=== PATIENT | female | born 1980 | race Caucasian/White ===

== ENCOUNTER 2017-02-11 11:11 | Inpatient (IN) | payer MEDICAID ==
[~2017-02-11] VITALS: Ht 152.4 cm; Wt 91.5 kg
[~2017-02-11 11:11] MED LIST: ACET500C5 PO; CALC400T19 PO; FOLI-49 PO; PREN1TAB13 PO; SYN75 PO
[2017-02-11 11:25] VITALS: BP 126/56; PULSE 81
[2017-02-11 12:24] LABS: ADD UMIC YES; URINE BILIRUBIN (Dip) NEGATIVE (NEGATIVE); URINE BLOOD (Dip) 3+ (NEGATIVE); URINE COLOR LT. YELLOW (YELLOW); URINE GLUCOSE (Dip) NEGATIVE (NEGATIVE); URINE KETONES (Dip) NEGATIVE (NEGATIVE); URINE LEUKOCYTE ESTERASE (Dip) 3+ (NEGATIVE); URINE NITRITE (Dip) NEGATIVE (NEGATIVE); URINE TOTAL PROTEIN (Dip) NEGATIVE (NEGATIVE); URINE UROBILINOGEN (Dip) 0.2 E.U./dL (0.1-1.0)
[2017-02-11 13:00] LABS: BACTERIA,URINE MANY; SQUAMOUS EPITHELIAL CELL,UR MANY; URINE RBCS 0-2 /HPF (0)
--- NOTE | 2017-02-11 13:12 | RADRPT ---
PROCEDURE: US OB. CLINICAL INDICATION: labor at 32 weeks gestational age. TECHNIQUE: Multiple sonographic images of the uterus were obtained. Transvaginal sonogra phy of the cervix was also performed. The images were reviewed on a PACS workstation. COMPARISON: No prior studies are available for comparison. FINDINGS: There is a single live intrauterine gestation. heart rate is 134 beats per minute. Measurements were made in order to determine age. The results are as follows: BPD = 8.50 cm. HC = 31.67 cm. AC = 32.77 cm. FL = 6.07 cm. Estimated weight is 2570 +/- 386 grams. LMP growth percentile is 96 %. Menstrual age by ultrasound dates is 34 weeks 4 days. The estimated date of delivery is 03/21/2017. Transvaginal cervical length is 2.4 cm. Position is cephalic and placenta is right lateral grade 1. There is no evidence for an abruption or placenta previa. IMPRESSION: 1. Single live intrauterine gestation of 34 weeks 4 days menstrual age by ultrasound dates. 2. The estimated date of delivery is 03/21/2017. 3. Cervical length is 2.4 cm. RPTAT: QQ .Sanju Ng MD, MD Date Time Electronically viewed and signed by .Sanju Ng MD, on 02/11/2017 13:12 .R/
[2017-02-11] MEDS ORDERED: LACTATED RINGER'S 1,000 ML IV SCH (14:34)
--- NOTE | 2017-02-11 14:55 | HP ---
Date/Time of Note Date/Time of Note DATE: 02/11/17 TIME: 14:53 OB - History Hx of Present Free Text/Dictation Pt is a 36yo at 32+5 who presents with lower abdominal cramping since early this AM and vaginal bleeding which she noticed on her underwear at 1000. Pt reports normal FM and denies LOF. Hx of 32wk PTD 2.5yrs ago and full-term 5yrs ago. Pt is receiving weekly hydroxyprogesterone. PROCEDURE: US OB. CLINICAL INDICATION: labor at 32 weeks gestational age. TECHNIQUE: Multiple sonographic images of the uterus were obtained. Transvaginal sonography of the cervix was also performed. The images were reviewed on a PACS workstation. COMPARISON: No prior studies are available for comparison. FINDINGS: There is a single live intrauterine gestation. heart rate is 134 beats per minute. Measurements were made in order to determine age. The results are as follows: BPD = 8.50 cm. HC = 31.67 cm. AC = 32.77 cm. FL = 6.07 cm. Estimated weight is 2570 +/- 386 grams. LMP growth percentile is 96 %. Menstrual age by ultrasound dates is 34 weeks 4 days. The estimated date of delivery is 03/21/2017. Transvaginal cervical length is 2.4 cm. Position is cephalic and placenta is right lateral grade 1. There is no evidence for an abruption or placenta previa. IMPRESSION: 1. Single live intrauterine gestation of 34 weeks 4 days menstrual age by ultrasound dates. 2. The estimated date of delivery is 03/21/2017. 3. Cervical length is 2.4 cm. Estimated Due Date: Apr 03, 2017 : 3 Para: 2 Care: Good Care Obstetrical Complications: Gestational Diabetes (A1, fasting this AM 92, 1hr postprandial s/p breakfast 122) Medical Complications: None OB Admission Exam Vital Signs Vital Signs Vital Signs Date Time Temp Pulse Resp B/P Pulse Ox O2 Delivery O2 Flow Rate FiO2 02/11/17 11:25 98.1 81 126/56 Physical Exam HEENT: WNL Heart: Rhythm Normal Lungs: Clear Abdomen: WNL (gravid, nontender) Extremities: Normal Cervical Dilatation: 1cm Effacement: 50% Station: -3 Membranes: Intact Heart Rate: 130's Accelerations: Accelerations Present Decelerations: No Decelerations Varibility: Moderate Contractions on Admission: 6-10 Minutes Apart (irregular, at times q4, other times q9 min) Last 72 hourBlood Glucose Bedside Glucose - 72 Hours Test 02/11/17 11:55 Bedside Glucose 94mg/dL (70-220) OB Assessment/Plan Other Assessment: contractions CL <2.5cm History of PTB GDMA1 Other plan: Will admit to antepartum service for continued monitoring and betamethasone administration in the setting of symptomatic contractions, cervical length <2.4cm and hx of . Unable to send FFN 2/2 vaginal bleeding. -Admission labs -Straight catheter for U/A and send urine for culture -Collect GBS on admission -IVF hydration -Carb consistent diet -Fasting and postprandial FSBG -CEFM and toco -Consider MFM consult. Will defer to primary OB -If pt becomes more active in terms of labor, will need to be transferred to L&D Plan d/w pt. Questions answered to her satisfaction. RAMOS CASAREZ MD February 11, 2017 14:55
[2017-02-11] MEDS: LACTATED RINGER'S 1,000 ML IV SCH ×2 (15:38→23:15)
[2017-02-11 15:45] LABS: ADD UMIC YES; URINE BILIRUBIN (Dip) NEGATIVE (NEGATIVE); URINE BLOOD (Dip) TRACE (NEGATIVE); URINE COLOR LT. YELLOW (YELLOW); URINE GLUCOSE (Dip) NEGATIVE (NEGATIVE); URINE KETONES (Dip) 40 (NEGATIVE); URINE LEUKOCYTE ESTERASE (Dip) NEGATIVE (NEGATIVE); URINE NITRITE (Dip) NEGATIVE (NEGATIVE); URINE TOTAL PROTEIN (Dip) NEGATIVE (NEGATIVE); URINE UROBILINOGEN (Dip) 0.2 E.U./dL (0.1-1.0)
[2017-02-11 15:45] LABS: ADD SCAN DIFF NO
[2017-02-11 15:47] LABS: BASOPHILS % 0.1 % (0.0-2.0); EOSINOPHILS # 0.5 10^3/ul (0.0-0.5); EOSINOPHILS % 6.7 % (0.0-7.0); HEMATOCRIT 37.3 % (37.0-47.0); HEMOGLOBIN 12.2 g/dl (12.0-16.0); LYMPHOCYTES # 1.7 10^3/ul (0.8-2.9); LYMPHOCYTES % 23.3 % (15.0-51.0); MEAN CORPUSCULAR HEMOGLOBIN 28.9 pg (29.0-33.0); MEAN CORPUSCULAR HGB CONC 32.7 g/dl (32.0-37.0); MEAN CORPUSCULAR VOLUME 88.4 fl (82.0-101.0); MEAN PLATELET VOLUME 9.8 fl (7.4-10.4); MONOCYTE # 0.4 10^3/ul (0.3-0.9); MONOCYTES % 5.1 % (0.0-11.0); NEUTROPHIL # 4.8 10^3/ul (1.6-7.5); NEUTROPHILS % 64.3 % (39.0-77.0); PLATELET COUNT 265 10^3/UL (140-415); RED BLOOD COUNT 4.22 10^6/ul (4.20-5.40); RED CELL DISTRIBUTION WIDTH 14.2 % (11.5-14.5); WHITE BLOOD COUNT 7.4 10^3/ul (4.8-10.8)
[2017-02-11] MEDS: BETAMET NA PHOS/AC(6 MG/ML) 5ML INJ IM SCH (16:15)
[2017-02-11 16:18] LABS: MUCUS,URINE FEW; SQUAMOUS EPITHELIAL CELL,UR FEW; URINE RBCS 0-2 /HPF (0)
[2017-02-11] MEDS: ACCU-CHEK XX SCH (19:33)
[2017-02-12] MEDS: NIFEdipine 10 MG CAP PO SCH ×3 (05:08→17:54)
[2017-02-12] MEDS ORDERED: TERBUTALINE 1 ML ONE (05:50)
[2017-02-12] MEDS ORDERED: TERBUTALINE 1 MG/ML INJ SC ONE (06:00)
[2017-02-12] MEDS: LACTATED RINGER'S 1,000 ML IV SCH ×4 (06:01→23:57)
[2017-02-12] MEDS: ACCU-CHEK XX SCH ×4 (08:13→20:33)
[2017-02-12] MEDS: BETAMET NA PHOS/AC(6 MG/ML) 5ML INJ IM SCH (16:09)
[2017-02-12] MEDS ORDERED: GLUCAGON 1 MG INJ IM PRN (17:00)
[2017-02-12] MEDS ORDERED: DEXTROSE 50% 50 ML SYRINGE IV PRN ×2 (17:00)
[2017-02-12] MEDS ORDERED: GLUCOSE GEL 15 GRAM TUBE PO PRN ×2 (17:00)
[2017-02-12] MEDS ORDERED: GLUCOSE GEL 15 GRAM TUBE BUCCAL PRN (17:00)
--- NOTE | 2017-02-12 17:32 | CONS ---
DATE OF ADMISSION: 02/11/2017 DATE OF CONSULTATION: REFERRING PHYSICIAN: Edelmira Mccain MD HISTORY OF PRESENT ILLNESS: I was asked to talk with this mother who is a 36- year-old 3, para 2 at 32.5 weeks gestational age in labor. Mother received 1 dose of betamethasone on 02/11 at 1615. was complicated by gestational diabetes which is diet controlled. Estimated weight is 2570 grams. Mother is on Procardia. I talked with mother via the video interpretation as mother is [place]ese speaking only. Discussed with mother that the infant being 32.5 weeks is premature with large for gestational age with an estimated weight of 2570 grams. I discussed about the risk of respiratory distress syndrome requiring treatment with oxygen therapy, bubble CPAP and/or Curosurf administration if respiratory distress is moderate or requiring oxygen greater than 40%. I also discussed about the risk of apnea of prematurity and treatment with stimulation, as well as nasal cannula CPAP and caffeine if needed. Discussed about risk of sepsis and possibility of treatment with antibiotics if suspicion is high. I also discussed about hyperbilirubinemia and electrolyte imbalance and TPN administration. Discussed about starting feedings with tube feedings and to be increased gradually and to be monitored for gastroesophageal reflux and abdominal distention. Mother would like to breast feed the . Discussed about the benefits of breast milk and also encouraged her to pump breast milk as soon as the infant is delivered. I also discussed about risk for neurodevelopmental delay, as the infant is premature. Discussed about length of stay of 2 to 3 weeks or longer depending on infant's response to treatment, as well as the problems during hospitalization. Discussed about infant feeding adequately with weight gain, able to maintain temperature and not having any other problems including apnea before discharge. Discussed about good prognosis and answered all mother's questions. As mother had no further questions, the discussion was concluded. Mother's records were not in the chart, but however, her blood type is O positive, antibody negative, hepatitis B surface antigen is negative and HIV is negative. An ultrasound showed 34.4 weeks gestational age with an estimated weight of 2570 grams. Dictated By: MELBA HAQ/NTS Conf#: [id number] DID#: [id number] CC: EDELMIRA MCCAIN MD;*EndCC* MTDD
--- NOTE | 2017-02-12 17:39 | QN ---
Documentation Comment pt doinjg well no complaints nst rective occasional ucx exam wnl a/p iup 32 weeks ptl-on procardia and bms a1gdm stable continue care possible dc in am TANA WHITE MD February 12, 2017 17:39
[2017-02-12] MEDS ORDERED: INSULIN ASPART [NOVOLOG] 3 ML PEN SC SCH (20:05)
[2017-02-13] MEDS: NIFEdipine 10 MG CAP PO SCH (00:04)
[2017-02-13] MEDS ORDERED: LACTATED RINGER'S 1,000 ML IV SCH (04:27)
[2017-02-13] MEDS ORDERED: METHYLERGONOVINE 0.2 MG INJ IM PRN ×2 (04:30→07:30)
[2017-02-13] MEDS ORDERED: OXYTOCIN 30 UNITS/LR 500 ML IV PRN ×2 (04:30→07:30)
[2017-02-13] MEDS ORDERED: IBUPROFEN 600 MG TAB PO PRN (04:30)
[2017-02-13] MEDS ORDERED: LACTATED RINGER'S 1,000 ML IV PRN (04:30)
[2017-02-13] MEDS ORDERED: MISOPROSTOL 200 MCG TAB PR PRN ×2 (04:30→07:30)
[2017-02-13] MEDS ORDERED: LIDOCAINE 1% (MPF) 30 ML INJ INJ PRN (04:30)
[2017-02-13] MEDS ORDERED: BUTORPHANOL 2 MG INJ IV PRN ×2 (04:30)
[2017-02-13] MEDS ORDERED: AMPICILLIN 2 GM/NS (PMX) 100 ML IV ONE (04:30)
[2017-02-13] MEDS ORDERED: OXYTOCIN 30 UNITS/LR 500 ML IV SCH ×2 (04:30)
[2017-02-13] MEDS ORDERED: ACETAMINOPHEN/CODEINE #3 TAB PO PRN (04:30)
[2017-02-13] MEDS ORDERED: CARBOPROST 250 MCG INJ IM PRN ×2 (04:30→07:30)
[2017-02-13] MEDS ORDERED: LEVOTHYROXINE 75 MCG TAB PO SCH (06:00)
[2017-02-13] MEDS: LACTATED RINGER'S 1,000 ML IV* SCH ×2 (07:09→15:09)
--- NOTE | 2017-02-13 07:18 | LDN ---
Date/Time of Note Date/Time of Note DATE: 02/13/17 TIME: 07:14 Delivery Summary Patient broke through tocolysis and progressed rapidly to delivery of a viable baby boy weighing 2585 grams or 5# 11oz, 18" long, and with Apgars of 9/9. Weeks of Gestation 33 Placenta Delivered: Spontaneously Meconium: none Episiotomy: No Perineal laceration: 0 Laceration repair: A first degree labial laceration was repaired with 2-0chromic. Anesthesia type: None Estimated blood loss: 200 Sponge & Needle done & correct: Yes All needle counts correct: Yes Any foreign bodies felt in the: No (vagina) Problems: Infant Delivery Information Sex Infant Sex: male Apgars 1 Minute: 9 5 Minute: 9 Suctioning Nose & mouth suctioned at phu: Yes Delee suction performed: No Umbilical Cord Umbilical cord with: 3 Vessels Cord presentations: no nuchal cord Cord Blood was obtained: Yes Mother & Baby Disposition Disposition Baby was very vigorous but transferred to the NICU due to the gestational age of 33 weeks. Mom & Baby to Maternity; Good: No Mom transferred to: Other (maternity) Baby to NICU: Yes OMER SANTO MD February 13, 2017 07:18
[2017-02-13 07:20] LABS: ADD SCAN DIFF NO
[2017-02-13] MEDS: OXYTOCIN 30 UNITS/LR 500 ML IV SCH ×2 (07:29→11:09)
[2017-02-13] MEDS ORDERED: LANOLIN 7 GM TUBE TOP PRN (07:30)
[2017-02-13] MEDS ORDERED: OXYCODONE/ASPIRIN (4.88/325) TAB PO PRN (07:30)
[2017-02-13] MEDS ORDERED: OXYTOCIN 30 UNITS/LR 500 ML IVPB ONE (07:30)
[2017-02-13] MEDS ORDERED: OXYTOCIN 30 UNITS/LR 500 ML IV ONE (07:30)
[2017-02-13 07:32] LABS: BASOPHILS % 0.1 % (0.0-2.0); EOSINOPHILS % 0.1 % (0.0-7.0); HEMATOCRIT 35.6 % (37.0-47.0); HEMOGLOBIN 11.8 g/dl (12.0-16.0); LYMPHOCYTES # 2.2 10^3/ul (0.8-2.9); LYMPHOCYTES % 18.7 % (15.0-51.0); MEAN CORPUSCULAR HEMOGLOBIN 29.5 pg (29.0-33.0); MEAN CORPUSCULAR HGB CONC 33.1 g/dl (32.0-37.0); MEAN PLATELET VOLUME 10.1 fl (7.4-10.4); MONOCYTE # 0.5 10^3/ul (0.3-0.9); MONOCYTES % 4.7 % (0.0-11.0); NEUTROPHIL # 8.7 10^3/ul (1.6-7.5); NEUTROPHILS % 75.4 % (39.0-77.0); PLATELET COUNT 272 10^3/UL (140-415); RED CELL DISTRIBUTION WIDTH 14.4 % (11.5-14.5); WHITE BLOOD COUNT 11.5 10^3/ul (4.8-10.8)
[2017-02-13 07:40] LABS: INR 0.93; PROTIME 12.5 Sec (12.2-14.2)
[2017-02-13 07:41] LABS: PARTIAL THROMBOPLASTIN TIME 24.5 Sec (25.0-35.0)
[2017-02-13 07:53] LABS: ALANINE AMINOTRANSFERASE 71 IU/L (13-69); ALBUMIN/GLOBULIN RATIO 0.96; ALKALINE PHOSPHATASE 271 IU/L (42-121); ANION GAP 10 (8-16); ASPARTATE AMINO TRANSFERASE 28 IU/L (15-46); BILIRUBIN,INDIRECT 0.3 mg/dl (0-1.1); BILIRUBIN,TOTAL 0.3 mg/dl (0.2-1.3); BLOOD UREA NITROGEN 8 mg/dl (7-20); CALCIUM 8.6 mg/dl (8.4-10.2); CARBON DIOXIDE 20 mmol/L (21-31); CHLORIDE 110 mmol/L (97-110); CREATININE 0.44 mg/dl (0.44-1.00); GLUCOSE 118 mg/dl (70-220); POTASSIUM 3.7 mmol/L (3.5-5.1); SODIUM 136 mmol/L (135-144); TOTAL PROTEIN 6.1 g/dl (6.1-8.1)
[2017-02-13] MEDS ORDERED: AMPICILLIN 1 GM/NS (PMX) 50 ML IV SCH (08:30)
[2017-02-13 09:26] LABS: ADD UMIC YES; URINE BILIRUBIN (Dip) NEGATIVE (NEGATIVE); URINE BLOOD (Dip) 2+ (NEGATIVE); URINE COLOR LT. YELLOW (YELLOW); URINE GLUCOSE (Dip) NEGATIVE (NEGATIVE); URINE KETONES (Dip) TRACE (NEGATIVE); URINE LEUKOCYTE ESTERASE (Dip) 2+ (NEGATIVE); URINE NITRITE (Dip) NEGATIVE (NEGATIVE); URINE TOTAL PROTEIN (Dip) NEGATIVE (NEGATIVE); URINE UROBILINOGEN (Dip) 0.2 E.U./dL (0.1-1.0)
[2017-02-13 09:40] LABS: BACTERIA,URINE MODERATE
[2017-02-13 09:50] VITALS: BP 100/58; PULSE 64; RESP 16
[2017-02-13 09:53] LABS: BARBITURATES Negative (NEGATIVE); BENZODIAZEPINES Negative (NEGATIVE); CANNABINOIDS Negative (NEGATIVE); COCAINE Negative (NEGATIVE); OPIATES Negative (NEGATIVE)
[2017-02-13] MEDS: IBUPROFEN 600 MG TAB PO SCH ×3 (12:07→23:41)
[2017-02-13] MEDS: LEVOTHYROXINE 75 MCG TAB PO SCH (12:38)
[2017-02-13 17:00] VITALS: BP 102/60; PULSE 62; RESP 18
[2017-02-13 19:30] VITALS: BP 105/55; PULSE 61; RESP 18
[2017-02-14 00:38] VITALS: BP 100/60; PULSE 65; RESP 18
[2017-02-14 04:00] VITALS: BP 112/71; PULSE 67; RESP 18
[2017-02-14] MEDS: IBUPROFEN 600 MG TAB PO SCH ×4 (05:41→23:28)
[2017-02-14 07:45] VITALS: BP 105/59; PULSE 57; RESP 17
[2017-02-14 08:28] LABS: ADD SCAN DIFF NO
[2017-02-14 08:50] LABS: BASOPHILS % 0.4 % (0.0-2.0); EOSINOPHILS # 0.3 10^3/ul (0.0-0.5); HEMATOCRIT 33.8 % (37.0-47.0); HEMOGLOBIN 10.6 g/dl (12.0-16.0); LYMPHOCYTES # 2.5 10^3/ul (0.8-2.9); MEAN CORPUSCULAR HEMOGLOBIN 28.8 pg (29.0-33.0); MEAN CORPUSCULAR HGB CONC 31.4 g/dl (32.0-37.0); MEAN CORPUSCULAR VOLUME 91.8 fl (82.0-101.0); MEAN PLATELET VOLUME 10.4 fl (7.4-10.4); MONOCYTE # 0.6 10^3/ul (0.3-0.9); MONOCYTES % 6.2 % (0.0-11.0); NEUTROPHIL # 6.6 10^3/ul (1.6-7.5); NEUTROPHILS % 64.7 % (39.0-77.0); PLATELET COUNT 258 10^3/UL (140-415); RED BLOOD COUNT 3.68 10^6/ul (4.20-5.40); RED CELL DISTRIBUTION WIDTH 14.6 % (11.5-14.5); WHITE BLOOD COUNT 10.2 10^3/ul (4.8-10.8)
[2017-02-14] MEDS: LEVOTHYROXINE 75 MCG TAB PO SCH (09:00)
[2017-02-14 14:08] LABS: RUBELLA ANTIBODY - IGG 8.06 index
[2017-02-14 16:00] VITALS: BP 117/70; PULSE 60; RESP 17
[2017-02-14 20:00] VITALS: BP 116/62; PULSE 65; RESP 20
[2017-02-15 04:03] VITALS: BP 108/66; PULSE 74; RESP 20
[2017-02-15] MEDS: IBUPROFEN 600 MG TAB PO SCH ×3 (05:36→17:46)
[2017-02-15 08:00] VITALS: BP 105/55; PULSE 55; RESP 18
[2017-02-15] MEDS ORDERED: DIPHTH/TET/ACEL PERTUSS (ADULT) 0.5 ML VIAL IM* ONE (09:00)
[2017-02-15] MEDS: LEVOTHYROXINE 75 MCG TAB PO SCH (13:33)
[2017-02-15 16:00] VITALS: BP 117/63; PULSE 65; RESP 18
--- NOTE | 2017-02-15 18:51 | PD.PPDC ---
[employer]ENT Discharge Instruction Diagnosis Final Diagnosis: Delivery at 33wks GA Condition Patient Condition: Good Diet Diet: Resume Regular Diet Activity/Restrictions Activity: Normal Activity Restrictions: No Sexual Activity Nothing in the Vagina No [place] No Tampons, douche Follow-up Follow-up with Physician: 3, Week/Weeks Return to clinic for [employer]PER[employer]OR [employer]UMENT REPAIR Instructions: Fever greater than 101 Chills Worsening abdominal pain Excessive Vaginal Bleeding More than 2 pads per hour Unable to tolerate diet OB Instructions: Breast Tenderness Depression Blurried Vision Headache RAMOS CASAREZ MD February 15, 2017 18:51
[2017-02-15] MEDS ORDERED: IBUP-1542 PO (18:55)
--- NOTE | 2017-02-15 18:57 | DS ---
Date/Time of Note Date/Time of Note DATE: 02/15/17 TIME: 18:55 Obstetrical Discharge Record Final Diagnosis Final Diagnosis: delivered Other Final Diagnosis Labor Vaginal Delivery Obstetrical Delivery: Spontaneous Complications Labor Augmentation: No Induction: No Tocolytics: Terbutaline Rupture of Membranes: Yes Gestational Age at Rupture 33 Condition on Discharge Physical Assessment Last Vitals: 97.9 117/63 65 18 Voiding: Yes Bowel Movement: Yes Breast: Engorged Fundus: Firm (nontender) Calf Tenderness: No Patient Condition: Good RAMOS CASAREZ MD February 15, 2017 18:57
[2017-02-15 20:45] VITALS: BP 110/55; PULSE 69; RESP 18
== END 2017-02-15 21:10 | disposition home or self-care (01) | DRG 775 ==
LOC: L-D 11:11 → OBT 11:11 → OBG 14:54 → L-D 02-13 04:39 → PP1 02-13 09:44
PROVIDERS: ADMIT Obstetrics & Gynecology; ATTEND Obstetrics & Gynecology
PROC: 4A1HX4Z Monitoring of Products of Conception, Cardiac Electrical Activity, External Approach (ICD-10-PCS; 2017-02-11)
PROC: 10E0XZZ Delivery of Products of Conception, External Approach (ICD-10-PCS; principal; 2017-02-13)
PROC: 0HQ9XZZ Repair Perineum Skin, External Approach (ICD-10-PCS; 2017-02-13)
DX: O60.14X0 Preterm labor third trimester with preterm delivery third trimester, not applicable or unspecified (principal); O24.420 Gestational diabetes mellitus in childbirth, diet controlled; O70.0 First degree perineal laceration during delivery; Z3A.33 33 weeks gestation of pregnancy; Z37.0 Single live birth
CPT/HCPCS: 76815; 76817; 80053; 80307; 81001; 81003; 82962; 85025; 85610; 85730; 86592; 86703; 86762; 86850; 86900; 86901; 87081; 87086; 87340; 88307; 90715; 99464; A4310; G0463; J0290; J0702; J1815; J2590; J3105; J7120

== ENCOUNTER 2018-12-11 21:50 | Emergency (ER) | payer MEDICAID, OTHER ==
[~2018-12-11] VITALS: Ht 162.6 cm; Wt 90.0 kg
[~2018-12-11 21:50] MED LIST changes: -ACET500C5 PO; +IBUP-1542 PO; +LEVO75TA84 PO; -SYN75 PO
[2018-12-11 22:01] VITALS: Ht 162.6 cm; Wt 90.0 kg
--- NOTE | 2018-12-12 00:27 | ERD ---
ER Documentation Chief Complaint Chief Complaint LEFT BREAST MASS X 1 WK, SENT BY CLINIC HPI 38-year-old female, with history of multiple left breast abscesses in the past, presents to the emergency department, complaining of 1 week with progressive, well localized, area of tenderness, erythema and warmth to palpation. She denies fevers, no chills, the patient is not breast-feeding. ROS All systems reviewed and are negative except as per history of present illness. Medications Home Meds Active Scripts Ibuprofen* (Motrin*) 600 Mg Tab, 600 MG PO Q8, #20 TAB Prov:KATH GATICA MD 12/12/18 Cephalexin* (Cephalexin*) 500 Mg Capsule, 500 MG PO Q8, #21 CAP Prov:KATH GATICA MD 12/12/18 Sulfamethoxazole/Trimethoprim* (Bactrim Ds* Tablet) 1 Each Tablet, 1 TAB PO BID, #14 TAB Prov:KATH GATICA MD 12/12/18 Ibuprofen* (Ibuprofen*) 600 Mg Tablet, 600 MG PO Q6 PRN for PAIN for 10 Days, #40 TAB 1 Refill Prov:RAMOS CASAREZ MD 02/15/17 Calcium Carbonate* (Tums* Ultra) 1,000 Mg Tab.chew, 1000 MG PO TID PRN for GASTROINTESTINAL UPSET, #30 TAB.CHEW Prov:ALVIN SAAB NP 03/28/16 Reported Medications Folic Acid* (Folic Acid*) 1 Mg Tablet, 1 MG PO DAILY, TAB 06/17/14 Vit-Iron Fumarate-FA ( Vitamins Tablet) 1 Tab Tablet, 1 TAB PO DAILY, TAB 06/17/14 Levothyroxine Sodium* (Synthroid*) 75 Mcg Tablet, 75 MCG PO DAILY 02/01/14 Allergies Allergies: Coded Allergies: No Known Allergy (Verified , 03/28/16) PMhx/Soc Medical and Surgical Hx: pt denies Medical Hx, pt denies Surgical Hx History of Surgery: No Anesthesia Reaction: No Hx Neurological Disorder: No Hx Respiratory Disorders: No Hx Cardiac Disorders: No Hx Psychiatric Problems: No Hx Miscellaneous Medical Probl: Yes (dx: 35 wks pain) Hx Alcohol Use: No Hx Substance Use: No Hx Tobacco Use: No Smoking Status: Never smoker FmHx Family History: No diabetes, No coronary disease Physical Exam Vitals Vital Signs Date Temp Pulse Resp B/P (MAP) Pulse Ox O2 O2 Flow FiO2 Time Delivery Rate 12/11/18 98.9 85 16 150/85 97 22:01 (106) Physical Exam Const: No acute distress Head: Atraumatic Eyes: Normal Conjunctiva ENT: Normal External Ears, Nose and Mouth. Neck: Full range of motion. No meningismus. Resp: Clear to auscultation bilaterally Breast: Left: Multiple scars from previous incisions and drainage. 2 x 2 cm area of erythema and edema, without fluctuance. Cardio: Regular rate and rhythm, no murmurs Abd: Soft, non tender, non distended. Normal bowel sounds Skin: No petechiae or rashes Back: No midline or flank tenderness Ext: No cyanosis, or edema Neur: Awake and alert Psych: Normal Mood and Affect Procedures/MDM Vital signs stable. Differential diagnosis considered include hematoma, mastitis, lipoma, cyst, f ibroglandular changes of the breast. Low suspicion for malignancy. During the ED course the patient remained stable, no new complaints. Clinical impression discussed with the patient who agrees with management. The patient is stable to be treated outpatient and will be discharged home with a Rx for antibiotics, some side effects of prescribed medications (headache, rash, nausea, vomiting, diarrhea, bleeding, hypertension, interactions with other medications) were reviewed. Follow up with the primary care provider in the next 48h has been recommended. If symptoms persist, worsen or new symptoms develop, then patient should return to the ED immediately. Instructions explained and given directly by me to the patient with acknowledgment and demonstrated understanding. Disclaimer: Inadvertent spelling and grammatical errors are likely due to EHR/dictation software use and do not reflect on the overall quality of patient care. Also, please note that the electronic time recorded on this note does not necessarily reflect the actual time of the patient encounter. Departure Diagnosis: Primary Impression: Mastitis of left breast unrelated to or Condition: Stable Additional Instructions: Muchas adams por [facility] para bolivar servicio. Esperamos que en bolivar visita a la radhika de emergencia bolivar problema medico haya sido evaluado y que se sienta mucho mejor. Le hemos diagnosticado julienne infeccion superficial del tejido mamario del pecho deisi; el tratamiento inicial debe ser con antibioticos; julienne vez los termine, le recomendamos mirza a bolivar PCP Mr. Herndonilan Brown para julienne posible referencia con un cirujano. Para estar seguros que bolivar mejoria sigue en proceso, le pedimos el favor de hacer julienne anirudh de seguimiento medico con bolivar doctor primario en los proximos 2-4 choi. Lleve con usted estos documentos y las medicinas recetadas. Si benito sintomas empeoran, NO SE ESPERE, por favor regrese a radhika de emergencia INMEDIATAMENTE. BELLO-KATH DIOP MD Dec 12, 2018 00:27
[2018-12-12] MEDS ORDERED: IBUP-1542 PO (00:30)
[2018-12-12] MEDS ORDERED: SULF1TAB31 PO (00:30)
[2018-12-12] MEDS ORDERED: CEPH500C PO (00:30)
[2018-12-12 00:54] VITALS: BP 134/64; PULSE 78; RESP 19
== END 2018-12-12 00:55 | disposition home or self-care (01) ==
LOC: FTE 21:50
DX: N61.1 Abscess of the breast and nipple (principal)
CPT/HCPCS: 99283

== ENCOUNTER 2019-06-13 09:27 | Emergency (ER) | payer OTHER ==
[~2019-06-13] VITALS: Ht 160 cm; Wt 90.0 kg
[~2019-06-13 09:27] MED LIST changes: +CEPH500C PO; +SULF1TAB31 PO
[2019-06-13 09:32] VITALS: BP 125/65; PULSE 65; RESP 18; Ht 160 cm; Wt 90.0 kg
[2019-06-13] MEDS ORDERED: IBUPROFEN 800 MG TAB PO ONE (12:30)
== END 2019-06-13 12:21 | disposition home or self-care (01) ==
LOC: FTE 09:27
DX: O20.9 Hemorrhage in early pregnancy, unspecified (principal); O99.281 Endocrine, nutritional and metabolic diseases complicating pregnancy, first trimester; E03.9 Hypothyroidism, unspecified; O24.111 Pre-existing type 2 diabetes mellitus, in pregnancy, first trimester; E11.9 Type 2 diabetes mellitus without complications; Z3A.01 Less than 8 weeks gestation of pregnancy
CPT/HCPCS: 36415; 76801; 76817; 80053; 81001; 84702; 85025; 86900; 86901; Z7502; Z7610